=== PATIENT | female | born 1965 | race Caucasian/White ===

== ENCOUNTER → 2016-10-18 | Outpatient (CLI) | payer BC ==
[~2016-10-18] MED LIST: ATOR40TA70 PO; CEPH500T PO; HYDR-3816 PO; LEVO500T2 PO; LORA10TA7 PO; MULT-141 PO; OMEG-109 PO; RANI150T11 PO; TAMO20TA2 PO
--- NOTE | 2016-10-18 18:36 | Diagnostic Imaging Report ---
PROCEDURE: US Thyroid. TECHNIQUE: Multiple real-time grayscale images were obtained of the thyroid in various projections. INDICATION: Hypothyroidism. FINDINGS: The right thyroid lobe is 3.1 x 1.7 x 1.2 cm. The left lobe is 3.2 x 1.3 x 1.2 cm. There is no dominant nodule seen. IMPRESSION: Unremarkable exam. Dictated by: Dictated on workstation # [id number]
== END ==
LOC: RAD 10:48
PROVIDERS: ATTEND Family Medicine
DX: E03.9 Hypothyroidism, unspecified (principal)
CPT/HCPCS: 76536

== ENCOUNTER 2017-10-14 11:04 | Emergency (ER) | payer OTHER, BC ==
[~2017-10-14] VITALS: Ht 160 cm; Wt 81.1 kg
[~2017-10-14 11:04] MED LIST changes: +HYDR-34 PO; -HYDR-3816 PO
[2017-10-14] MEDS ORDERED: TETANUS,DIPTH,PERTUSS P/F (BOOSTRIX) 0.5 ML VIAL IM ONE (11:30)
--- NOTE | 2017-10-14 11:55 | ED Upper Extremity ---
General Chief Complaint: Laceration Stated Complaint: LT PINKY INJ Nursing Triage Note: TO ROOM REPORTS SHUT L 5TH FINGER IN DOOR. LACERATION NOTED TO L 5TH FNGER. Nursing Sepsis Screen: No Definite Risk Source: patient Exam Limitations: no limitations History of Present Illness Date Seen by Provider: Oct 14, 2017 Time Seen by Provider: 11:10 Initial Comments Patient is a 52-year-old female presents to the emergency room with complaints of laceration to left fifth finger. She reports that while at work today she shut the finger in a heavy door. There is a 1 cm circumferential laceration to the distal tip of the left fifth finger. She is not up-to-date on her tetanus vaccine. Onset: just prior to arrival Pain/Injury Location: left 5th finger Modifying Factors: Worse With Movement Allergies and Home Medications Allergies Coded Allergies: No Known Drug Allergies (Unverified , 11/20/14) Home Medications Atorvastatin Calcium 40 Mg Tablet, 40 MG PO DAILY, (Reported) Cephalexin 500 Mg Capsule, 500 MG PO Q8H Prescribed by: ALBARO SANTILLAN on 10/14/17 1333 Hydrocodone Bit/Acetaminophen 1 Each Tablet, 1 EACH PO Q4H PRN for PAIN, ( Reported) Hydrocodone Bit/Acetaminophen 1 Tab Tab, 1 EACH PO Q6H PRN for PAIN Prescribed by: ALBARO SANTILLAN on 10/14/17 1333 Loratadine 10 Mg Tablet, 10 MG PO DAILY, (Reported) Ranitidine HCl 150 Mg Tablet, 150 MG PO DAILY, (Reported) Tamoxifen Citrate 20 Mg Tablet, 20 MG PO DAILY, (Reported) Patient Home Medication List Home Medication List Reviewed: Yes Constitutional: see HPI; No chills, No fever Skin: see HPI, other (laceration to the left fifth finger.) Past Qqvsoku-Oykcsz-Bnlqkd Hx Patient Social History Alcohol Use: Denies Use Recreational Drug Use: No Smoking Status: Never a Smoker Recent Foreign Travel: No Contact w/Someone Who Travel: No Recent Infectious Disease Expo: No Recent Hopitalizations: No Immunizations Up To Date Tetanus Booster (TDap): More than 5yrs PED Vaccines UTD: Yes Date of Pneumonia Vaccine: Nov 15, 2012 Seasonal Allergies Seasonal Allergies: Yes Past Medical History Surgeries: Yes (bilat mastectomies, expanders placed et removed) Breast, Hysterectomy Respiratory: No Cardiac: Yes High Cholesterol Neurological: No Reproductive Disorders: No Female 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 No Pertinent Family Hx Physical Exam Vital Signs Vital Signs - First Documented 10/14/17 11:07 Temp 97.8 Pulse 100 Resp 18 B/P (MAP) 130/57 (81) Pulse Ox 98 O2 Delivery Room Air Capillary Refill : Less Than 3 Seconds Height, Weight, BMI Height: 5'3.00" Weight: 178lbs. 12.0oz. 81.995869ls; 30.82 BMI Method:Stated General Appearance: WD/WN, no apparent distress Cardiovascular: regular rate, rhythm, no edema, no gallop, no JVD, no murmur Respiratory: chest non-tender, lungs clear, normal breath sounds, no respiratory distress, no accessory muscle use Hand: Left (there is a circumferential laceration to the distal tip of the left fifth finger approximately 1 cm in length. The nail is also cut in half.), laceration Neurologic/Tendon: normal sensation, normal motor functions, normal tendon functions, no evidence tendon injury Neurologic/Psychiatric: alert, normal mood/affect, oriented x 3 Skin: normal color, warm/dry Lymphatic: no adenopathy Procedures/Interventions Wound Location: Upper Extremities (left hand fifth finger.) Other Wound Location Circumferential laceration to the left distal fifth finger. The laceration does go through the nail bed. Wound Explored: clean Irrigated w/ Saline (ccs): 200 Wound Debrided: minimal Suture: Prolene Suture Size: 5-0 Number of Sutures: 4 Progress A digital block was performed on the left fifth finger. Approximately 1 mL was injected at the base of the fifth finger. Local anesthetic was also used approximately 1 mL was used locally. After anesthetic and started to work the wound was irrigated with sterile normal saline and Betasept approximately 200 mL total. The wound was closed with 4 simple interrupted sutures. Nail trepidation was also used. Triple antibiotic ointment and a tube gauze dressing was applied. The patient was also sent home with an AlumaFoam splint to use as needed. Progress/Results/Core Measures Results/Orders My Orders Medications Given in ED Vital Signs/I&O Blood Pressure Mean: 81 Progress Progress Note : Progress Note I have seen and evaluated the patient. She agrees with plans of discharge, close follow-up with her physicians and Workmen's Comp. Return precautions were given. Diagnostic Imaging Diagonstic Imaging: Xray Plain Films/CT/US/NM/MRI: hand Comments NAME: KATHY MADRIGAL MED REC#: [id number] PHYSICIAN: ALBARO SANTILLAN CC: ALBARO SANTILLAN; JERED HINTON MD Page 1 of 1 RADIOLOGY REPORT VIA [place], [place] CC: ABLARO SANTILLAN; JERED HINTON MD Page 1 of 1 RADIOLOGY REPORT NAME: KATHY MADRIGAL MED REC#: [id number] PT STATUS: REG ER : 1965 PHYSICIAN: ALBARO SANTILLAN ADMIT DATE: 10/14/17/ER Signed Date of Exam: 10/14/17 FINGER(S) INDICATION: Pain in left small finger after laceration. COMPARISON: None available. FINDINGS AND IMPRESSION: 1. There is an acute transverse simple fracture through the mid diaphysis of the small finger distal phalanx. This fracture is not displaced or angulated. 2. Thin linear hyperdensity at the tip of the tuft of the small finger may represent a small chip fracture of the tuft versus foreign body. Dictated by: Dictated on workstation # [id number] Dict: 10/14/17 1218 Trans: 10/14/17 1335 Interpreted by: JERED HINTON MD Electronically signed by: JERED HINTON MD 10/14/17 1335 Departure Impression Primary Impression: Laceration Additional Impression: Fracture of distal phalanx of finger, open Qualified Codes: S62.667B - Nondisplaced fracture of distal phalanx of left little finger, initial encounter for open fracture Disposition: 01 HOME, SELF-CARE Condition: Stable/Unchanged Departure-Patient Inst. Decision time for Depature: 13:25 Referrals: BHANU BULLOCK JACQUELINE S DO (PCP/Family) Primary Care Physician Patient Instructions: Laceration Repair With Stitches (DC), Finger Fracture (DC ) Add. Discharge Instructions: Take medication as directed. Watch for signs of infection such as increased redness, swelling, pain, discharge. Follow-up with Dr. MONTENEGRO within 1 week for recheck. Follow-up with Dr. Bullock the orthopedic surgeon within 1 week for recheck. Follow-up with your work, physician as needed. Return back to the emergency room for any worsening symptoms or any concerns as needed. Sutures need to be taken out in 7 days you may return back to the emergency room for this or your regular doctor. All discharge instructions reviewed with patient and/or family. Voiced understanding. Scripts Cephalexin (Keflex) 500 Mg Capsule 500 MG PO Q8H for 10 Days, #30 CAP Prov: ALBARO SANTILLAN 10/14/17 Hydrocodone Bit/Acetaminophen (Hydrocodone/Acetaminophen 5/325mg Tablet) 1 Tab Tab 1 EACH PO Q6H PRN for PAIN, #14 TAB Prov: ALBARO SANTILLAN 10/14/17 Work/School Note: Work Release Form Date Seen in the Emergency Department: Oct 14, 2017 Return to Work: Oct 17, 2017 Restrictions: Need Release from Doctor, Follow Up With [facility] Images Extremities-Upper 1 - laceration 1 - laceration ALBARO SANTILLAN Oct 14, 2017 11:55
[2017-10-14] MEDS ORDERED: LIDOCAINE 1% INJ 20 ML 20 ML VIAL INJ ONE (12:15)
--- NOTE | 2017-10-14 12:21 | Diagnostic Imaging Report ---
INDICATION: Pain in left small finger after laceration. COMPARISON: None available. FINDINGS AND IMPRESSION: 1. There is an acute transverse simple fracture through the mid diaphysis of the small finger distal phalanx. This fracture is not displaced or angulated. 2. Thin linear hyperdensity at the tip of the tuft of the small finger may represent a small chip fracture of the tuft versus foreign body. Dictated by: Dictated on workstation # [id number]
[2017-10-14] MEDS ORDERED: CEPH-507 PO (13:33)
[2017-10-14] MEDS ORDERED: ACHD5005 PO (13:33)
[2017-10-14 13:42] VITALS: BP 130/57
== END 2017-10-14 13:48 | disposition home or self-care (01) ==
LOC: EDUNIT# 11:04 → ER 11:06
DX: S62.637A Displaced fracture of distal phalanx of left little finger, initial encounter for closed fracture (principal); S61.217A Laceration without foreign body of left little finger without damage to nail, initial encounter; E78.00 Pure hypercholesterolemia, unspecified; Z85.3 Personal history of malignant neoplasm of breast; Z23 Encounter for immunization; Z90.13 Acquired absence of bilateral breasts and nipples; Z90.710 Acquired absence of both cervix and uterus; W23.1XXA Caught, crushed, jammed, or pinched between stationary objects, initial encounter; Y92.59 Other trade areas as the place of occurrence of the external cause; Y99.0 Civilian activity done for income or pay
CPT/HCPCS: 12001; 73140; 90471; 90715

== ENCOUNTER → 2019-06-24 | Outpatient (CLI) | payer BC, OTHER ==
[~2019-06-24] MED LIST changes: +ACHD5005 PO; +CEPH-507 PO
--- NOTE | 2019-06-24 09:36 | Diagnostic Imaging Report ---
INDICATION: Elevated liver function tests, history of breast cancer. TECHNIQUE: Ultrasound of the liver and right upper quadrant was performed in the routine fashion. FINDINGS: The liver shows diffuse increased echogenicity, compatible with fatty infiltration. There is no focal liver lesion. The gallbladder shows an echogenic focus along the anterior wall which may be a small polyp measuring about 1.8 mm. There is no gallstone or wall thickening otherwise seen. Common duct measured 4 mm. Visualized portions of the aorta were normal. The IVC was obscured by overlying gas. Right kidney measured 10.3 cm in length. There is a superior pole cyst in the right kidney measuring 2.8 x 2.6 x 2.1 cm. There is no ascites. Portal vein is patent with hepatopetal flow. IMPRESSION: Diffuse increased echogenicity of the liver, compatible with fatty infiltration. No focal liver lesion or biliary dilatation. There appears to be a small polyp along the anterior wall of the gallbladder. There is a benign-appearing cyst in the right kidney. Dictated by: Dictated on workstation # [id number]
== END ==
LOC: RAD 08:03
PROVIDERS: ATTEND Family Medicine
DX: K76.89 Other specified diseases of liver (principal); N28.1 Cyst of kidney, acquired; Z85.3 Personal history of malignant neoplasm of breast
CPT/HCPCS: 76705

== ENCOUNTER 2021-06-06 05:31 | Outpatient (CLI) | payer BC ==
[~2021-06-06] VITALS: Ht 160 cm; Wt 72.7 kg
[2021-06-06] MEDS ORDERED: ACET325T38 PO (10:22)
[2021-06-06] MEDS ORDERED: POTA99TA26 PO (10:22)
[2021-06-06] MEDS ORDERED: METH-287 PO (10:22)
[2021-06-06] MEDS ORDERED: VITA100C22 PO (10:22)
[2021-06-06] MEDS ORDERED: VITA1CAP PO (10:22)
[2021-06-06] MEDS ORDERED: MAGN400T39 PO (10:22)
[2021-06-06] MEDS ORDERED: EZET10TA49 PO (10:22)
[2021-06-06] MEDS ORDERED: MULT-974 PO (10:22)
[2021-06-06] MEDS ORDERED: CALC-308 PO (10:22)
[2021-06-06] MEDS ORDERED: VNL75T PO (10:22)
== END 2021-06-06 10:36 | disposition home or self-care (01) ==
LOC: PREOP 05:31
PROVIDERS: ATTEND Orthopaedic Surgery
DX: Z01.818 Encounter for other preprocedural examination (principal)

== ENCOUNTER 2021-06-13 05:53 | Day surgery (SDC) | payer BC ==
--- NOTE | 2021-06-05 17:47 | HISTORY AND PHYSICAL ---
DATE OF SERVICE: ADMISSION HISTORY AND PHYSICAL This will be for outpatient surgery on 06/13/2021 for right knee arthroscopy. HISTORY OF PRESENT ILLNESS: The patient is a 55-year-old female with complaints of progressively worsening right knee pain, catching, locking and swelling. She reports pain with stairs, kneeling and squatting. She reports marked activity limitations because of the knee. She is having difficulty with work because of the knee. She denies any specific trauma or injury, but has had similar episodes on left in the past. She reports pain anteriorly. She denies hip pain, back pain and paresthesias. Due to functional impairment and failure to improve with conservative measures, the patient has elected to proceed with surgical intervention. REVIEW OF SYSTEMS: No chest pain, no shortness of breath, no dysuria. PAST MEDICAL HISTORY: Hyperlipidemia and breast cancer. PAST SURGICAL HISTORY: Partial mastectomy, total hysterectomy. FAMILY HISTORY: Unknown. PRIMARY CARE PROVIDER: Dr. Brunner. MEDICATIONS: Magnesium, vitamin E, vitamin D, vitamin C, ezetimibe, venlafaxine. ALLERGIES: HYDROCODONE. SOCIAL HISTORY: The patient is a former smoker. She denies alcohol use. RADIOGRAPHS: Reveal mild medial and patellofemoral joint space narrowing. PHYSICAL EXAMINATION: GENERAL: The patient is well-developed, well-nourished, in no acute distress. HEENT: Normocephalic, atraumatic. Pupils are equal, round and reactive to light. Oropharynx is clear. NECK: Supple with no lymphadenopathy. LUNGS: Clear to auscultation bilaterally. HEART: Regular rate and rhythm. ABDOMEN: Soft, nontender, nondistended. EXTREMITIES: The right knee demonstrates patellofemoral crepitus and pain with patellar loading. She has a large effusion. She is mildly tender along the medial joint line and she has mild pain medially with Alana's. Range of motion is 0/2/135. She ambulates with an antalgic gait. 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 PLAN: Right knee arthroscopy with partial medial meniscectomy and chondroplasty. The risks, benefits, options, ramifications and recovery have been discussed at length with the patient. She understands and wishes to proceed. This will be for outpatient surgery on 06/13/2021 for right knee arthroscopy. Job ID: [id number] DocumentID: [id number] Dictated Date: 06/01/2021 09:16:08 Physical Fitness Trainer Date: 06/01/2021 09:56:42 Dictated By: ALONSO CALDERON MD
[~2021-06-13] VITALS: Ht 160 cm; Wt 72.7 kg
[2021-06-13] VITALS (10 sets, daily range): BP systolic 80–137; BP diastolic 41–86
[~2021-06-13 05:53] MED LIST changes: +ACET325T38 PO; +CALC-308 PO; +EZET10TA49 PO; +MAGN400T39 PO; +METH-287 PO; +MULT-974 PO; +POTA99TA26 PO; +VITA100C22 PO; +VITA1CAP PO; +VNL75T PO
[2021-06-13] MEDS ORDERED: ceFAZolin 2 GM IV Premixed 50 ML IV ONE (06:00)
[2021-06-13] MEDS ORDERED: morphine PF (DURAMORPH) 10 MG/10 ML AMP ONE (07:05)
[2021-06-13] MEDS ORDERED: BUPIVACAINE 0.25% 30 ML (SENSORCAINE) VIAL ONE (07:05)
[2021-06-13] MEDS: LACTATED RINGERS 1,000 ML IV PRN ×2 (07:06→07:53)
[2021-06-13] MEDS ORDERED: ONDANSETRON 4 MG/2 ML (SDV) Z0FRAN ONE (07:18)
[2021-06-13] MEDS ORDERED: fentaNYL INJ 100 MCG/2 ML AMP ONE (07:18)
[2021-06-13] MEDS ORDERED: MIDAZOLAM 2 MG/2 ML (VERSED) VIAL ONE (07:18)
[2021-06-13] MEDS ORDERED: LIDOCAINE PF 2% 5 ML (XYLOCAINE) VIAL ONE (07:18)
[2021-06-13] MEDS ORDERED: proPOfol 200 MG/20 ML (DIPRIVAN) VIAL IV ONE (07:18)
--- NOTE | 2021-06-13 07:35 | Progress Note-Pre Operative ---
Pre-Operative Progress Note H&P Reviewed The H&P was reviewed, patient examined and no changes noted. Date Seen by Provider: Jun 13, 2021 Time Seen by Provider: 07:25 Date H&P Reviewed: Jun 13, 2021 Time H&P Reviewed: 07:11 Pre-Operative Diagnosis: right knee medial meniscus tear and chondromalacia ALONSO CALDERON MD Jun 13, 2021 07:35
--- NOTE | 2021-06-13 07:36 | Progress Note-Post Operative ---
Post-Operative Progess Note Surgeon (s)/Apprentice Embalmer (s) Surgeon ALONSO CALDERON MD Apprentice Embalmer: Nader Dickerson Pre-Operative Diagnosis right knee medial meniscus tear and chondromalacia Post-Operative Diagnosis right knee lateral meniscus tear and chondromalacia of the medial and lateral femoral condyles and patella Procedure & Operative Findings Date of Procedure 06/13/21 Procedure Performed/Findings right knee arthroscopic partial lateral meniscectomy and chondroplasty of the medial and lateral femoral condyles and patella Anesthesia Type GETA Estimated Blood Loss Estimated blood loss (mL): minimal Specimens/Packing Specimens Removed none Packing: none ALONSO CALDERON MD Jun 13, 2021 07:36
[2021-06-13] MEDS ORDERED: oxyCODONE/APAP 5/325MG (PERCOCET 5) TABLET PO PRN (07:45)
[2021-06-13] MEDS ORDERED: SEVOFLURANE (ULTANE) 15 ML INHAL SOLN ONE (08:11)
[2021-06-13] MEDS ORDERED: fentaNYL INJ 100 MCG/2 ML AMP IVP ONE (08:30)
[2021-06-13] MEDS ORDERED: ONDANSETRON 4 MG/2 ML (SDV) Z0FRAN IVP PRN (08:30)
--- NOTE | 2021-06-13 10:05 | Physical Therapy Ortho Eval ---
PT Orthopedic Evaluation Type of Surgery Knee Scope WBAT Prior Level of Function Current Living Status: Significant Other Subjective Subjective Patient stated that her knee felt good and had no pain currently. Patient states that she had already got up and walked without use of a walker. Entry Into Home: Stairs Without Railing Steps Into Home: 2 Motor Control Motor Control: Motor Control WNL ROM ROM: WFL Transfer SCALE: Activities may be completed with or without assistive devices. 0-Msxcqsbnta-jlfilba completes the activity by him/herself with no assistance from a helper. 5-Set-up or Clean-up Assistance-helper sets up or cleans up; patient completes activity. [place] assists only prior to or following the activity. 4-Supervision or Touching Assistance-helper provides verbal cues and/or touching/steadying and/or contact guard assistance as patient completes activity. Assistance may be provided throughout the activity or intermittently. 3-Partial/Moderate Assistance-helper does LESS THAN HALF the effort. Forreston lifts, holds or supports trunk or limbs, but provides less than half the effort. 2-Substantial/Maximal Assistance-helper does MORE THAN HALF the effort. Forreston lifts or holds trunk or limbs and provides more than half the effort. 7-Xlvamekbp-pvwril does ALL the effort. Patient does none of the effort to complete the activity. Or, the assistance of 2 or more helpers is required for the patient to complete the activity. If activity was not attempted, code reason: 7-Patient Refused. 9-Not Applicable-not attempted and the patient did not perform the activity before the current illness, exacerbation or injury. 10-Not Attempted due to Environmental Limitations-(lack of equipment, weather restraints, etc.). 88-Not Attempted due to Medical Conditions or Safety Concerns. Transfers (B, C, W/C) (QC): 5 Gait Gait Assistive Device: FWW Weight Bearing Status RLE: Weight Bearing/Tolerated Weight Bearing Status LLE: Full Weight Bearing Gait (QC): 5 Distance: 50ft Treatment Rendered Treatment: Therapeutic Exercises, Gait Train, Step Train, Issued Written HEP, Caregiver Instruction Exercise Instruction: Quad Sets, Heel Slides, Ankle Pumps Assessment/Goals Goal Time Frame: 1 Visit Understands HEP: Yes Safe Ambulation: Yes Plan Treatment Plan: Discharge PT/Family Agrees to Plan: Yes Time Time In: 0940 Time Out: 1000 Total Billed Treatment Time: 20 Billed Treatment Time 1 Visit EVL 20' JOE GIPSON PT Jun 13, 2021 10:05
--- NOTE | 2021-06-13 10:22 | Anesthesia-General Post-Op ---
General Patient Condition Mental Status/LOC: Same as Preop Cardiovascular: Satisfactory Nausea/Vomiting: Absent Respiratory: Satisfactory Pain: Controlled Complications: Absent Post Op Complications Complications None Follow Up Care/Instructions Patient Instructions None needed. Anesthesia/Patient Condition Patient Condition Patient is doing well, no complaints, stable vital signs, no apparent adverse anesthesia problems. No complications reported per nursing. SEA POSEY CRNA Jun 13, 2021 10:21
--- NOTE | 2021-06-13 12:57 | OPERATIVE REPORT ---
DATE OF SERVICE: 06/13/2021 PREOPERATIVE DIAGNOSES: 1. Right knee chondromalacia of the medial femoral condyle. 2. Right knee chondromalacia of the lateral femoral condyle. 3. Right knee chondromalacia of patella. POSTOPERATIVE DIAGNOSES: 1. Right knee chondromalacia of the medial femoral condyle. 2. Right knee chondromalacia of the lateral femoral condyle. 3. Right knee chondromalacia of patella. 4. Right knee lateral meniscus tear. PROCEDURES PERFORMED: 1. Right knee arthroscopic partial lateral meniscectomy. 2. Right knee arthroscopic chondroplasty of the medial femoral condyle. 3. Right knee arthroscopic chondroplasty of the lateral femoral condyle. 4. Right knee arthroscopic chondroplasty of the patella. SURGEON: Wily Calderon MD. DATA TYPIST: Nader Dickerson, who assisted throughout the procedure and closed the incisions. ANESTHESIA: General endotracheal by Angelia Husain CRNA. TOURNIQUET TIME: Not applicable. ESTIMATED BLOOD LOSS: Minimal. DRAINS: None. COMPLICATIONS: None. POSTOPERATIVE PLAN: Routine arthroscopy protocol. The patient was transferred to the recovery room awake and in stable condition. STATEMENT OF MEDICAL NECESSITY: The patient is a 55-year-old female with longstanding progressive right knee pain, catching, locking and swelling. She had a large effusion. She had patellofemoral crepitus and tenderness along the medial femoral condyle. She had tried rest, activity modifications without relief. Due to functional impairment and failure to improve with conservative measures, the patient elected to proceed with surgical intervention. Examination under anesthesia revealed range of motion of 0/0/130 with negative Miles, negative anterior and posterior drawer. No varus valgus laxity, negative pivot shift. Arthroscopic findings of the patella demonstrated grade II chondral flap centrally in a 10 x 10 area. Trochlea demonstrated no significant chondral abnormalities. Medial and lateral gutters were clear. The ACL and PCL were intact. The medial compartment demonstrated grade III chondral flaps of the central portion of femoral condyle in 15 x 15 area. The lateral compartment demonstrated complex tear of the lateral meniscus involving approximately one-half of the posterior horn and body. In addition, there was grade IV chondral loss in the posterolateral corner of the tibial plateau in a 15 x 15 area with grade IV chondral loss in adjacent femoral condyle with surrounding grade III chondral flaps at the periphery. DESCRIPTION OF PROCEDURE: After the risks and benefits of the procedure were discussed and questions were answered, an informed consent was signed and placed on chart, the operative site was confirmed in the preoperative holding area initialed by the surgeon. The patient was then transferred to the operating room and after adequate levels of general endotracheal anesthetic were obtained, a timeout was called, confirming the operative site. The right lower extremity was prepped and draped in the usual sterile fashion. Knee joint was injected with 60 mL fluid and standard inferolateral portal was placed for the arthroscope under direct visualization, inferior medial portal was created, the menisci and cruciates were carefully probed, above findings noted. The unstable chondral flaps on the patella were debrided with shaver back to a stable edge. Scope was redirected into the medial compartment and unstable chondral flaps on the medial femoral condyle were debrided with shaver back to a stable edge. Scope was redirected into the lateral compartment, where the unstable chondral flaps in lateral femoral condyle were debrided with a shaver back to a stable edge and the posterior horn and body of the lateral meniscus were debrided with a biter and shaver back to a stable edge. The knee was copiously irrigated. The port sites were closed with 4-0 nylon in a simple interrupted fashion. Knee was injected with Duramorph. The port sites were infiltrated with plain Marcaine. A soft dressing was applied and the patient was transferred to the recovery room awake and in stable condition. Job ID: [id number] DocumentID: [id number] Dictated Date: 06/13/2021 08:17:44 Chemist Proteins Date: 06/13/2021 12:57:16 Dictated By: WILY CALDERON MD
== END 2021-06-13 10:04 | disposition home or self-care (01) ==
LOC: SDC 05:53
PROVIDERS: ATTEND Orthopaedic Surgery
DX: S83.281A Other tear of lateral meniscus, current injury, right knee, initial encounter (principal); S83.241A Other tear of medial meniscus, current injury, right knee, initial encounter; M22.41 Chondromalacia patellae, right knee; Z87.891 Personal history of nicotine dependence; Z79.899 Other long term (current) drug therapy
CPT/HCPCS: 87081